=== PATIENT | male | born 1995 | race African-American/Black ===

== ENCOUNTER 2016-10-25 09:25 | Emergency (ER) | payer MEDICAID ==
[2016-10-25] MEDS ORDERED: IPRATROPIUM/ALBUTEROL 0.5-2.5 MG/3 ML AMPUL NEB ONE (09:40)
[2016-10-25] MEDS ORDERED: ALBUTEROL SULFATE 0.083% NEB 2.5 MG/3 ML AMPUL NEB SCH (09:55)
--- NOTE | 2016-10-25 10:35 | RADIOLOGY REPORT (SQ) ---
EXAM DESCRIPTION: CHEST SINGLE VIEW COMPLETED DATE/TIME: 10/25/2016 10:22 am REASON FOR STUDY: DIFFICULTY BREATHING COMPARISON: None. EXAM PARAMETERS: NUMBER OF VIEWS: One view. TECHNIQUE: Single frontal radiographic view of the chest acquired. RADIATION DOSE: NA LIMITATIONS: None. FINDINGS: LUNGS AND PLEURA: No opacities, masses or pneumothorax. No pleural effusion. MEDIASTINUM AND HILAR STRUCTURES: No masses. Contour normal. HEART AND VASCULAR STRUCTURES: Heart normal in size. Normal vasculature. BONES: No acute findings. HARDWARE: None in the chest. OTHER: No other significant finding. IMPRESSION: NO ACUTE RADIOGRAPHIC FINDING IN THE CHEST. TECHNICAL DOCUMENTATION: JOB ID: [id number]
--- NOTE | 2016-10-25 11:38 | ER Document Report ---
ED Respiratory Problem - General Chief Complaint: Asthma Exacerbation Stated Complaint: DIFFICULTY BREATHING Information source: Patient Notes: 21-year-old male with a past medical history of asthma who presents with 2 days of runny nose, congestion, cough, with development today of some right-sided substernal chest pain. He describes it as "sharp", worse when he takes a deep breath or coughs, without fevers, vomiting, calf pain, leg swelling, recent trips or travel. Patient states he has never been admitted for asthma. He does not remember the last time he was provided steroids. TRAVEL OUTSIDE OF THE [place] IN LAST 30 DAYS: No - HPI Patient complains to provider of: Other - See above Onset: Other - See above Duration: Better Initiating Event: Other - See above Quality of pain: Other - See above Severity: Moderate Pain Level: 2 Context: Other - See above Short of Breath: Mild Chest pain/discomfort: Center Cough: Nonproductive Sputum amount: None Associated symptoms: Other - See above Similar symptoms previously: No Recently seen / treated by doctor: No - Related Data Allergies/Adverse Reactions: shellfish derived Allergy (Verified 10/25/16 09:26) Past Medical History - General Information source: Patient - Social History Smoking Status: Unknown if Ever Smoked Cigarette use (# per day): No Chew tobacco use (# tins/day): No Smoking Education Provided: No Frequency of alcohol use: None Drug Abuse: None Family History: Reviewed & Not Pertinent Patient has suicidal ideation: No Patient has homicidal ideation: No Pulmonary Medical History: Reports: Hx Asthma Renal/ Medical History: Denies: Hx Peritoneal Dialysis Review of Systems - Review of Systems Constitutional: denies: Fever EENT: Nose congestion, Nose discharge. denies: Eye discharge Cardiovascular: denies: Palpitations Respiratory: Cough, Hurts to breathe, Short of breath. denies: Hemoptysis, Sputum Gastrointestinal: denies: Vomiting Genitourinary: denies: Dysuria Musculoskeletal: denies: Leg swelling Skin: Other - no hives. denies: Rash Neurological/Psychological: Other - no slurred speech -: Yes All other systems reviewed and negative Physical Exam - Vital signs Vitals: Temp Pulse Resp BP Pulse Ox 97.8 F 72 15 148/85 H 100 10/25/16 09:26 10/25/16 09:26 10/25/16 09:26 10/25/16 09:26 10/25/16 09:26 Notes: Reviewed vital signs and nursing note as charted by RN. CONSTITUTIONAL: Alert and oriented and responds appropriately to questions. Well -appearing; well-nourished HEAD: Normocephalic; atraumatic EYES: PERRL; Conjunctivae clear, sclerae non-icteric ENT: Normal nose; bilateral nonpurulent rhinorrhea; moist mucous membranes; pharynx without lesions noted NECK: Supple without meningismus; non-tender; no cervical lymphadenopathy, no masses CARD: Regular rate and rhythm; no murmurs, no clicks, no rubs, no gallops; symmetric distal pulses RESP: Normal chest excursion without splinting or tachypnea; breath sounds clear and equal bilaterally; has tenderness to palpation of the right anterior chest wall without any obvious erythema, crepitus, or swelling; no wheezes, no rhonchi, no rales ABD/GI: Normal bowel sounds; non-distended; soft, non-tender BACK: The back appears normal and is non-tender to palpation, there is no CVA tenderness EXT: Normal ROM in all joints; non-tender to palpation; no cyanosis, no effusions, no edema SKIN: Normal color for age and race; warm; dry; good turgor; capillary refill < 2 seconds; no acute lesions noted NEURO: Moves all extremities equally; Motor and sensory function intact PSYCH: The patient's mood and manner are appropriate. Grooming and personal hygiene are appropriate. Course - Re-evaluation Re-evalutation: Given the above history and physical examination with nasal congestion, cough, stable vital signs, young age, tenderness to palpation of the chest wall, history of asthma, I believe that the patient most likely is having musculoskeletal chest pain. EKG shows a heart rate of 54, normal sinus rhythm, normal axis, no obvious ST elevation or depression, slightly inverted T waves in leads V3, 3, and aVF. Minimal LVH. Old EKG from January 2016 shows no obvious appreciable change. 10/25/16 11:35 Chest x-ray shows normal heart, normal mediastinum, no fractures, normal lung diana, no pneumothorax. Patient's pain is improved. Patient has received 1 nebulized albuterol and I detect no wheezing at this time. Patient is not tachycardic or hypoxic. No obvious pneumothorax on x-ray. Patient will be discharged home at this time with strict return precautions, high-dose Motrin, a 5 day course of steroids, and strict return follow-up precautions with the primary doctor. - Vital Signs Vital signs: Temp Pulse Resp BP Pulse Ox 97.8 F 72 15 148/85 H 100 10/25/16 09:26 10/25/16 09:26 10/25/16 09:26 10/25/16 09:26 10/25/16 09:26 Discharge - Discharge Clinical Impression: Chest wall pain, Nasal congestion, Cough Condition: Good Disposition: HOME, SELF-CARE Additional Instructions: Come back immediately with any increased pain, shortness of breath, fevers, difficulty breathing or swallowing, or any other acute problems. Please complete the course of steroids, Motrin as prescribed and please make sure that you take 2 breaths of the albuterol inhaler every 4 hours for the next 48 hours and then every 6 hours as needed after that. Please follow-up with your primary care physician. Prescriptions: Ibuprofen [Motrin 600 Mg Tablet] 600 mg PO Q6H PRN #20 tablet PRN Reason: for pain Prednisone [Deltasone 20 mg Tablet] 3 tab PO DAILY 5 Days
[2016-10-25 11:40] VITALS: BP 132/80
[2016-10-25] MEDS ORDERED: ALBUTEROL SULFATE HFA (90 MCG/PUFF) 8 GM MDI (1 MDI/ER DISP) IH PRN (11:42)
--- NOTE | 2016-10-25 17:04 | EKG REPORT ---
SEVERITY:- ABNORMAL ECG - SINUS RHYTHM PROBABLE LEFT VENTRICULAR HYPERTROPHY BORDERLINE T ABNORMALITIES, INFERIOR LEADS : Confirmed by: Nilam Sherwood MD 25-Oct-2016 17:03:37
== END 2016-10-25 12:03 | disposition home or self-care (01) ==
LOC: ER 09:25
DX: R07.89 Other chest pain (principal); R09.81 Nasal congestion; R05 Cough; J45.901 Unspecified asthma with (acute) exacerbation; R06.02 Shortness of breath; R09.89 Other specified symptoms and signs involving the circulatory and respiratory systems; R07.9 Chest pain, unspecified
CPT/HCPCS: 94640; 99285; 71010; 93005; 93010; J3490; J7620

== ENCOUNTER 2016-11-03 17:56 | Emergency (ER) | payer SELFPAY ==
--- NOTE | 2016-11-03 19:00 | ER Document Report ---
HPI - HPI Patient complains to provider of: scrotal pain Onset: Other - 1 year Onset/Duration: Waxing and waning Quality of pain: No pain Pain Level: Denies Context: Presents complaining of scrotal pain off and on for the past year. Patient states that he typically has symptoms about 2-3 times a week and currently has no pain symptoms. Patient does state that he has had occasional penile discharge off and on but denies any at present. Patient denies any dysuria or urinary frequency. Patient does have some skin lesions to the left side of his penis that he is concerned about genital warts. Patient states the lesion started to appear about 5 months ago. Associated Symptoms: Other - Scrotal discomfort. denies: Fever Exacerbated by: Denies Relieved by: Denies Similar symptoms previously: No Recently seen / treated by doctor: Yes - ROS ROS below otherwise negative: Yes Systems Reviewed and Negative: Yes All other systems reviewed and negative - CONSTITUTIONAL Constitutional: DENIES: Fever, Chills - GASTROINTESTINAL Gastrointestinal: DENIES: Abdominal Pain, Nausea - URINARY Urinary: DENIES: Dysuria, Urgency, Frequency - REPRODUCTIVE Reproductive: DENIES: : - MUSCULOSKELETAL Musculoskeletal: DENIES: Back Pain - DERM Skin Color: Normal Skin Problems: Rash Past Medical History - General Information source: Patient - Social History Smoking Status: Current Every Day Smoker Frequency of alcohol use: Occasional Drug Abuse: None Occupation: Moving and storage Family History: Reviewed & Not Pertinent Patient has suicidal ideation: No Patient has homicidal ideation: No Pulmonary Medical History: Reports: Hx Asthma Renal/ Medical History: Denies: Hx Peritoneal Dialysis Surgical Hx: Negative Vertical Provider Document - CONSTITUTIONAL Agree With Documented VS: Yes Exam Limitations: No Limitations General Appearance: WD/WN, No Apparent Distress - INFECTION CONTROL TRAVEL OUTSIDE OF THE [place] IN LAST 30 DAYS: No - HEENT HEENT: Atraumatic, Normocephalic - NECK Neck: Normal Inspection - RESPIRATORY Respiratory: Breath Sounds Normal, No Respiratory Distress O2 Sat by Pulse Oximetry: 98 - CARDIOVASCULAR Cardiovascular: Regular Rate, Regular Rhythm, No Murmur - GI/ABDOMEN Gastrointestinal: Abdomen Soft, Abdomen Non-Tender, No Organomegaly - REPRODUCTIVE Notes: No testicular tenderness, swelling or erythema, normal cremasteric reflex, no inguinal tenderness or lymphadenopathy. Patient with few scattered irregular raised skin lesions concerning for condyloma - BACK Back: Normal Inspection. negative: CVA Tenderness-Right, CVA Tenderness-Left - MUSCULOSKELETAL/EXTREMETIES Musculoskeletal/Extremeties: LORI SMITH - NEURO Level of Consciousness: Awake, Alert, Appropriate Motor/Sensory: No Motor Deficit - DERM Integumentary: Warm, Dry, Rash - Raised skin lesions to left side base of shaft of penis concerning for condyloma Course - Re-evaluation Re-evalutation: 11/03/16 20:12 discussed with patient his test results as well as treatment options for what appears to be a likely genital warts. Patient offered prescription for imiquimod, discussed the length of treatment required with this topical application. Patient also advised at the health department has a clinic that does chemical treatment with a different chemical to treat the warts that would be another option. Patient prefers to seek treatment at the health department, and declines the prescription at this time. Pt also advised that he can seek HIV testing at the health department as well if he so chooses. - Vital Signs Vital signs: Temp Pulse Resp BP Pulse Ox 98.6 F 70 16 138/65 H 98 11/03/16 18:29 11/03/16 18:29 11/03/16 18:29 11/03/16 18:29 11/03/16 18:29 - Laboratory Laboratory results interpreted by me: 11/03/16 20:01 Labs- Entire Visit 11/03/16 19:05 Urine Color YELLOW Urine Appearance CLEAR Urine pH 8.0 Ur Specific [place] 1.016 Urine Protein NEGATIVE Urine Glucose (UA) NEGATIVE Urine Ketones NEGATIVE Urine Blood NEGATIVE Urine Nitrite NEGATIVE Urine Bilirubin NEGATIVE Urine Urobilinogen 2.0 H Ur Leukocyte Esterase NEGATIVE Urine WBC (Auto) 0 Urine Mucus (Auto) RARE Urine Ascorbic Acid NEGATIVE - Diagnostic Test Radiology reviewed: Reports reviewed Discharge - Discharge Clinical Impression: Scrotal pain, Genital warts Hydrocele Qualifiers: Hydrocele type: unspecified Qualified Code(s): N43.3 - Hydrocele, unspecified Condition: Stable Disposition: HOME, SELF-CARE Instructions: Hydrocele ([facility]), Genital Warts ([facility]) Additional Instructions: Return immediately for any new or worsening symptoms Followup with your primary care provider, call tomorrow to make a followup appointment Follow-up with the health department for additional treatment of the genital warts Wear supportive underwear to help with scrotal discomfort Follow up with a urologist for any continued scrotal pain or problems Forms: Return to Work Referrals: [facility] [Provider Group] - Follow up as needed HEALTH DEPT,[facility] [NO LOCAL MD] - 11/06/16
[2016-11-03 19:23] LABS: APPEARANCE,URINE CLEAR; BILIRUBIN,URINE NEGATIVE (NEGATIVE); GLUCOSE, URINE NEGATIVE (NEGATIVE); KETONES,URINE NEGATIVE (NEGATIVE); LEUKOCYTE ESTERASE,URINE NEGATIVE (NEGATIVE); NITRITE,URINE NEGATIVE (NEGATIVE); PROTEIN,URINE NEGATIVE (NEGATIVE); URINE SPECIFIC GRAVITY 1.016
--- NOTE | 2016-11-03 19:56 | RADIOLOGY REPORT (SQ) ---
EXAM DESCRIPTION: U/S SCROTUM W/DOPPLER COMPLETED DATE/TIME: 11/03/2016 7:44 pm REASON FOR STUDY: scrotal pain COMPARISON: None. TECHNIQUE: Static and realtime francis scale imaging of the scrotum and testes. Selected color Doppler and spectral images recorded to document blood flow. LIMITATIONS: None. FINDINGS: RIGHT: TESTICLE: Normal size. Normal echotexture. Normal blood flow. No mass. EPIDIDYMIS: Heterogeneous HYDROCELE OR VARICOCELE: Hydrocele. 2.6 cm. HERNIA OR EXTRA-TESTICULAR MASS: No. OTHER: No other significant finding. LEFT: TESTICLE: Normal size. Normal echotexture. Normal blood flow. No mass. EPIDIDYMIS: Normal. HYDROCELE OR VARICOCELE: Hydrocele. 2.3 cm. HERNIA OR EXTRA-TESTICULAR MASS: No. OTHER: No other significant finding. IMPRESSION: NORMAL SCROTAL ULTRASOUND. NO EVIDENCE OF TESTICULAR MASS OR TORSION. Bilateral hydroceles. TECHNICAL DOCUMENTATION: JOB ID: [id number] [employer]- All Rights Reserved
[2016-11-03] MEDS ORDERED: AZITHROMYCIN 250 MG TABLET PO ONE (19:57)
[2016-11-03] MEDS ORDERED: CEFTRIAXONE INJ 250 MG VIAL IM ONE (19:57)
[2016-11-03] MEDS ORDERED: LIDOCAINE 1% INJ-PF (10 MG/ML) 30 ML SDV INJ ONE (19:57)
[2016-11-03 20:50] LABS: CHLAM PCR NOT DETECTED (NOT DETECT)
[2016-11-03 20:57] VITALS: BP 120/63
== END 2016-11-03 20:51 | disposition home or self-care (01) ==
LOC: ER 17:56
DX: N43.3 Hydrocele, unspecified (principal); A63.0 Anogenital (venereal) warts; N50.82 Scrotal pain; J45.909 Unspecified asthma, uncomplicated; F17.200 Nicotine dependence, unspecified, uncomplicated
CPT/HCPCS: 99284; 96372; 81001; 87491; 87591; 76870; 93976; J3490; J0696

== ENCOUNTER 2016-12-01 06:15 | Emergency (ER) | payer SELFPAY ==
[2016-12-01 06:28] VITALS: BP 114/84
== END 2016-12-01 06:29 | disposition left against medical advice (07) ==
LOC: ER 06:15
DX: Z53.21 Procedure and treatment not carried out due to patient leaving prior to being seen by health care provider (principal)

== ENCOUNTER 2020-02-11 22:50 | Emergency (ER) | payer SELFPAY ==
[2020-02-12] MEDS ORDERED: PREDNISONE 20 MG TABLET PO ONE (00:11)
[2020-02-12] MEDS ORDERED: IPRATROPIUM/ALBUTEROL 0.5-2.5 MG/3 ML AMPUL NEB ONE (00:11)
[2020-02-12] MEDS ORDERED: IBUPROFEN 800 MG TABLET PO ONE (00:13)
--- NOTE | 2020-02-12 00:14 | ER Document Report ---
ED Medical Screen (RME) - General Chief Complaint: Cough Stated Complaint: COUGH,BODY ACHES,HEADACHE Time Seen by Provider: 02/12/20 00:09 Mode of Arrival: Ambulatory Information source: Patient Notes: 24-year-old -[place]ag[place] gentleman with history of asthma here with shortness of breath, cough productive of green and bloody sputum, and increased wheezing. Does not have an albuterol inhaler to take. General: Mild respiratory distress Pulmonary: Mild respiratory distress. Wheezing bilaterally Cardiac slightly tachycardic Abdominal nontender I have greeted and performed a rapid initial assessment of this patient. A comprehensive ED assessment and evaluation of the patient, analysis of test results and completion of the medical decision making process will be conducted by additional ED providers. TRAVEL OUTSIDE OF THE [place] IN LAST 30 DAYS: No - Related Data Allergies/Adverse Reactions: shellfish derived Allergy (Verified 10/25/16 09:26) Past Medical History Pulmonary Medical History: Reports: Hx Asthma Renal/ Medical History: Denies: Hx Peritoneal Dialysis Physical Exam - Vital signs Vitals: Temp Pulse Resp BP Pulse Ox 100.8 F H 97 22 H 150/76 H 94 02/11/20 23:02 02/11/20 23:02 02/11/20 23:02 02/11/20 23:02 02/11/20 23:02 Course - Vital Signs Vital signs: Temp Pulse Resp BP Pulse Ox 100.8 F H 97 22 H 150/76 H 96 02/11/20 23:02 02/11/20 23:02 02/11/20 23:02 02/11/20 23:02 02/11/20 23:03
[2020-02-12] MEDS ORDERED: METHYLPREDNISOLONE INJ 125 MG/2 ML SDV IV ONE (01:54)
[2020-02-12] MEDS ORDERED: RINGERS SOLUTION,LACTATED 1,000 ML IV ONE (01:55)
--- NOTE | 2020-02-12 01:55 | ER Document Report ---
ED Respiratory Problem - General Chief Complaint: Cough Stated Complaint: COUGH,BODY ACHES,HEADACHE Time Seen by Provider: 02/12/20 00:09 Primary Care Provider: TANA TRUJILLO MD [ACTIVE STAFF] - Follow up as needed Mode of Arrival: Ambulatory Information source: Patient Notes: 24-year-old male past medical history significant for asthma presents to the emergency room complaining of a cough with green sputum that started yesterday. Subjective fever has been taking Tylenol without relief. Currently without an inhaler. He denies any recent travel. No COVID-19 exposure. TRAVEL OUTSIDE OF THE [place] IN LAST 30 DAYS: No - Related Data Allergies/Adverse Reactions: shellfish derived Allergy (Verified 10/25/16 09:26) Past Medical History - General Information source: Patient - Social History Smoking Status: Never Smoker Frequency of alcohol use: Occasional Drug Abuse: None Family History: Reviewed & Not Pertinent Pulmonary Medical History: Reports: Hx Asthma Renal/ Medical History: Denies: Hx Peritoneal Dialysis Review of Systems - Review of Systems Constitutional: No symptoms reported EENT: No symptoms reported Cardiovascular: No symptoms reported Respiratory: Cough, Wheezing Gastrointestinal: No symptoms reported Musculoskeletal: No symptoms reported Skin: No symptoms reported Neurological/Psychological: No symptoms reported -: Yes All other systems reviewed and negative Physical Exam - Vital signs Vitals: Temp Pulse Resp BP Pulse Ox 100.8 F H 97 22 H 150/76 H 94 02/11/20 23:02 02/11/20 23:02 02/11/20 23:02 02/11/20 23:02 02/11/20 23:02 - General General appearance: Appears well, Alert In distress: Mild - HEENT Head: Normocephalic, Atraumatic Eyes: Normal Pupils: PERRL Ears: Normal External canal: Normal Tympanic membrane: Normal Sinus: Normal Nasal: Normal Pharynx: Normal Neck: Normal - Respiratory Respiratory status: No respiratory distress Chest status: Nontender Breath sounds: Wheezing Chest palpation: Normal - Cardiovascular Rhythm: Tachycardia Heart sounds: Normal auscultation Murmur: No - Neurological Neuro grossly intact: Yes Cognition: Normal Orientation: AAOx4 Juan A Coma Scale Eye Opening: Spontaneous [place] Coma Scale Verbal: Oriented [place] Coma Scale Motor: Obeys Commands [place] Coma Scale Total: 15 Speech: Normal Motor strength normal: LUE, RUE, LLE, RLE Sensory: Normal - Skin Skin Temperature: Warm Skin Moisture: Dry Skin Color: Normal Course - Re-evaluation Re-evalutation: 02/12/20 03:43 Patient is resting comfortably he is afebrile, he is nontoxic-appearing, wheezing has resolved. Reviewed all lab and x-ray findings with patient. Patient does not meet COVID-19 criteria testing. He was counseled to take the prednisone as prescribed. Inhaler as prescribed. Outpatient follow-up with a primary care physician if not improving in 2 to 3 days. On-call physician was provided. Patient was given strict return to the emergency room guidelines. Return for any new or worsening symptoms. All questions were answered. Patient verbalized understanding and agrees with plan of care. - Vital Signs Vital signs: Temp Pulse Resp BP Pulse Ox 99.3 F 97 22 H 128/64 H 94 02/12/20 01:00 02/11/20 23:02 02/11/20 23:02 02/12/20 04:00 02/12/20 04:00 - Laboratory Result Diagrams: 02/12/20 01:48 02/12/20 01:48 Laboratory results interpreted by me: 02/12/20 02/12/20 02/12/20 01:48 01:48 01:48 WBC 10.6 H Eos % (Auto) 7.4 H Absolute Eos (auto) 0.8 H Sodium 135.6 L Creatinine 1.38 H Magnesium 2.4 H - Diagnostic Test Radiology reviewed: Reports reviewed Discharge - Discharge Clinical Impression: Asthma exacerbation Qualifiers: Asthma severity: mild Asthma persistence: intermittent Qualified Code(s): J45.21 - Mild intermittent asthma with (acute) exacerbation Condition: Stable Disposition: HOME, SELF-CARE Instructions: Asthma ([facility]) Additional Instructions: Steroids as prescribed. Inhaler as prescribed. Outpatient follow-up with a primary care physician for recheck in 2 to 3 days. Return to the emergency room for any new or worsening symptoms. Prescriptions: Prednisone [Deltasone 20 mg Tablet] See Protocol PO DAILY 9 Days #18 tablet Albuterol Sulfate [Proair HFA Inhalation Aerosol 8.5 gm MDI] 2 puff IH Q4H PRN #1 mdi PRN Reason: Referrals: TANA TRUJILLO MD [ACTIVE STAFF] - Follow up as needed
[2020-02-12 01:58] LABS: ABSOLUTE BASOPHILS # (AUTO) 0.1 10^3/uL (0.0-0.2); ABSOLUTE EOSINOPHILS # (AUTO) 0.8 10^3/uL (0.0-0.6); ABSOLUTE LYMPHOCYTES (AUTO) 1.6 10^3/uL (0.5-4.7); ABSOLUTE MONOCYTES (AUTO) 1.1 10^3/uL (0.1-1.4); BASOPHILS % (AUTO) 0.5 % (0-2); EOSINOPHILS % (AUTO) 7.4 % (0-6); HEMATOCRIT 44.3 % (37.9-51.0); HEMOGLOBIN 15.6 g/dL (13.5-17.0); LYMPHOCYTES % (AUTO) 15.3 % (13-45); MEAN CORPUSCULAR HEMOGLOBIN 32.8 pg (27.0-33.4); MEAN CORPUSCULAR HGB CONC 35.2 g/dL (32.0-36.0); MEAN CORPUSCULAR VOLUME 93 fl (80-97); MONOCYTES % (AUTO) 10.5 % (3-13); PLATELET COUNT 193 10^3/uL (150-450); RED BLOOD COUNT 4.76 10^6/uL (4.35-5.55); RED CELL DISTRIBUTION WIDTH 13.5 % (11.5-14.0); SEGMENTED NEUTROPHILS % (AUTO) 66.3 % (42-78); TOTAL CELLS COUNTED % (AUTO) 100 %; WHITE BLOOD COUNT 10.6 10^3/uL (4.0-10.5)
[2020-02-12 02:12] LABS: ALBUMIN 3.9 g/dL (3.5-5.0); ALKALINE PHOSPHATASE 89 U/L (38-126); ANION GAP 8 (5-19); ASPARTATE AMINO TRANSFERASE 46 U/L (17-59); BILIRUBIN,DIRECT 0.3 mg/dL (0.0-0.4); BLOOD UREA NITROGEN 10 mg/dL (7-20); CARBON DIOXIDE 29 mmol/L (22-30); CHLORIDE 99 mmol/L (98-107); GLUCOSE 102 mg/dL (75-110); POTASSIUM 3.8 mmol/L (3.6-5.0); TOTAL PROTEIN 6.7 g/dL (6.3-8.2)
--- NOTE | 2020-02-12 02:19 | RADIOLOGY REPORT (SQ) ---
CLINICAL INDICATION: sob wheeze green bloody sputum. TECHNIQUE: A single portable AP view was obtained of the chest at 0203 hours. COMPARISON: October 25, 2016. FINDINGS: The cardiomediastinal silhouette is normal. The lungs are grossly clear. No evidence of effusion or pneumothorax. The visualized bones are unremarkable. IMPRESSION: No evidence of active intrathoracic disease.
[2020-02-12 04:19] VITALS: BP 128/64
== END 2020-02-12 04:20 | disposition home or self-care (01) ==
LOC: ER 22:50
DX: J45.21 Mild intermittent asthma with (acute) exacerbation (principal); R51.9 Headache, unspecified; M79.10 Myalgia, unspecified site; Z91.013 Allergy to seafood
CPT/HCPCS: 94640; 99284; 96361; 96374; 36415; 83735; 85025; 80053; 71045; J2930; J7120